=== PATIENT | female | born 1995 | race Caucasian/White ===

== ENCOUNTER → 2020-05-24 | Day surgery (SDC) | payer OTHER ==
[~2020-05-24] MED LIST: ANUSOL HC SUPP1 SUPP PR; COLACE100 MG PO; CYANOCOBAL1000 MCG/1 INJ; DAILY VALUE1 EACH PO; FEROSUL220 MG/5 M PO; FLEXERIL 10 MG10 MG PO; HUMIRA PEN40 MG/0.2 SQ; KEFLEX CAP 500500 MG PO; LIDOCAINE-PRILO30 GM TP; LINZESS290 MCG PO; MIRTAZAPINE7.5 MG PO; NUVARING VAGIN1 EACH VG; PERCOCET 5-3251 EACH PO; PHENERGAN 25 MG25 M1 PO; PROTONIX40 MG PO; REMERON15 MG PO; STELARA90 MG/1 ML SQ; VITAMIN D3125 MCG PO; VITAMIN D32000 UNI1 PO; ZOFRAN8 MG PO
== END | disposition home or self-care (01) ==
LOC: OR 09:40
DX: K62.4 Stenosis of anus and rectum (principal); K50.812 Crohn's disease of both small and large intestine with intestinal obstruction; F17.210 Nicotine dependence, cigarettes, uncomplicated; Z88.2 Allergy status to sulfonamides; Z88.5 Allergy status to narcotic agent; Z88.8 Allergy status to other drugs, medicaments and biological substances; Z79.899 Other long term (current) drug therapy
CPT/HCPCS: 84703; J2001; J2704; J7040

== ENCOUNTER → 2021-07-04 | Day surgery (SDC) | payer OTHER ==
[~2021-07-04] MED LIST changes: +CARAFATE1 GM PO
== END | disposition home or self-care (01) ==
LOC: OR 06:21
DX: K50.812 Crohn's disease of both small and large intestine with intestinal obstruction (principal); K63.3 Ulcer of intestine; K21.9 Gastro-esophageal reflux disease without esophagitis; Z20.822 Contact with and (suspected) exposure to COVID-19; Z88.2 Allergy status to sulfonamides; Z88.5 Allergy status to narcotic agent; Z79.899 Other long term (current) drug therapy
CPT/HCPCS: 84703; J2250; J2704; J7040; U0002